=== PATIENT | male | born 1965 ===

== ENCOUNTER 2023-06-10 00:45 | Emergency (ER) | payer MEDICAID, OTHER ==
[~2023-06-10] VITALS: Ht 175.3 cm; Wt 63.6 kg
[2023-06-10] MEDS: SODIUM CHLORIDE 0.9% 1,000 ML IV ONE ×2 (01:15→02:13)
[2023-06-10 01:30] LABS: Red Cell Distribution Width 13.5 % (11.8-14.3)
[2023-06-10 01:34] LABS: Basophils # (auto) 0.1 10 ^3/uL (0-0.2); Basophils % (auto) 0.8 % (0.0-2.0); Eosinophils # (auto) 0.2 10 ^3/uL (0-0.8); Eosinophils % (auto) 1.7 % (0.0-7.0); Hematocrit 38.2 % (41.0-53.0); Hemoglobin 12.7 g/dL (13.5-17.5); Lymphocytes # (auto) 3.6 10 ^3/uL (0.4-5.4); Lymphocytes % (auto) 36.1 % (10.0-50.0); Mean Corpuscular Hemoglobin 30.7 pg (28.0-32.0); Mean Corpuscular Hgb Conc. 33.3 g/dL (32.0-36.0); Mean Corpuscular Volume 92.3 fL (80.0-100.0); Monocytes # (auto) 1.2 10 ^3/uL (0-1.3); Monocytes % (auto) 11.8 % (0.0-12.0); Neutrophils % (auto) 49.6 % (37.0-80.0); Red Blood Cells 4.14 10^6/uL (4.5-5.90)
[2023-06-10 02:00] VITALS: TEMP 98.2
[2023-06-10 02:30] VITALS: PULSE 53; RESP 15; O2SAT 97
[2023-06-10] MEDS ORDERED: LACTATED RINGER'S 2,000 ML IV ONE (02:30)
[2023-06-10 02:46] LABS: Alanine Aminotransferase 14 U/L (7-40); Albumin 3.9 g/dL (3.2-4.8); Alkaline Phosphatase 52 U/L (46-116); Anion Gap 7 (5-15); Aspartate Aminotransferase 12 U/L (13-40); BUN/Creatinine Ratio 18.4 (10.0-20.0); Bilirubin, Total 0.9 mg/dL (0.2-1.0); Blood Urea Nitrogen 18 mg/dL (9-23); Calcium 9.5 mg/dL (8.7-10.4); Carbon Dioxide 23 mmol/L (20-30); Chloride 108 mmol/L (98-107); Glucose 110 mg/dL (74-106); Potassium 3.9 mmol/L (3.5-5.1); Sodium 138 mmol/L (136-145); Total Protein 6.6 g/dL (5.7-8.2)
[2023-06-10 04:50] VITALS: BP 121/70; PULSE 54; RESP 14; O2SAT 98
[2023-06-10] MEDS ORDERED: ALBUMIN 25% 100 ML IV ONE (05:15)
[2023-06-10] MEDS ORDERED: KETOROLAC TROMETH 30 MG/ML 1ML VIAL IV ONE (05:15)
[2023-06-10 05:22] LABS: Urine Bacteria NONE SEEN /hpf (None Seen); Urine Blood Negative /uL (Negative); Urine Clarity Clear (Clear); Urine Protein, UAD Negative (Negative); Urine Specific Gravity 1.009 (1.001-1.035); Urine Urobilinogen Normal (Negative); Urine WBC <1 /hpf (0 - 3); Urine pH 5.5 (5.0-8.0)
[2023-06-10 05:23] LABS: Urine Color Straw (Yellow)
[2023-06-10 05:32] LABS: Amphetamine Screen, Urine Neg (NEGATIVE); Barbiturate Scree,Urine Neg (NEGATIVE); Benzodiazephine Screen, Urine Neg (NEGATIVE); Cannabinoid Screen, Urine Pos (NEGATIVE); Cocaine Screen, Urine Neg (NEGATIVE); Opiate Scree,Urine Neg (NEGATIVE); Phencyclidine Screen, Urine Neg (NEGATIVE)
[2023-06-10] MEDS ORDERED: IBUP1TAB5 PO (06:10)
== END 2023-06-10 06:18 | disposition home or self-care (01) ==
LOC: ER 00:45
DX: S89.91XA Unspecified injury of right lower leg, initial encounter (principal); S09.8XXA Other specified injuries of head, initial encounter; D64.9 Anemia, unspecified; M25.461 Effusion, right knee; E86.0 Dehydration; I95.9 Hypotension, unspecified; R73.9 Hyperglycemia, unspecified; R42 Dizziness and giddiness; Z79.899 Other long term (current) drug therapy; V00.131A Fall from skateboard, initial encounter; Y93.51 Activity, roller skating (inline) and skateboarding; Y92.331 Roller skating rink as the place of occurrence of the external cause; Y99.8 Other external cause status
CPT/HCPCS: 36415; 70450; 71250; 72125; 73560; 74176; 80053; 80307; 81001; 83605; 84484; 85025; 87040; 93005; 96361; 96365; 96375; 99285; J1885; J7030; P9047